=== PATIENT | male | born 1955 | race Caucasian/White ===

== ENCOUNTER 2025-06-15 14:29 | Observation (INO) ==
[2025-06-15 15:02] LABS: Hematocrit (blood only) 30.8 % (42.0-52.0); Hemoglobin 10.3 g/dl (14.0-18.0); Immature Granulocytes # (auto) 0.01 K/uL (0.01-0.20); Immature Granulocytes % (auto) 0.2 %; Mean Corpuscular Hemoglobin 31.4 pg (25.0-34.0); Mean Corpuscular Volume 93.9 fL (80.0-100.0); Platelet Count 191 K/uL (130-400); RDW Standard Deviation 57.3 fL (36.4-46.3); Red Blood Count 3.28 M/uL (4.70-6.10); White Blood Count 4.19 K/ul (4.8-10.8)
[2025-06-15 15:17] LABS: Alanine Aminotransferase 18.0 U/L (7-52); Albumin Globulin Ratio 1.6 (0.9-2); Albumin Level 4.2 gm/dl (3.4-5.0); Alkaline Phosphatase 81.0 U/L (34-104); Anion Gap 15.0 (3-11); Bilirubin,Total 0.5 mg/dl (0.2-1.0); Blood Urea Nitrogen 19.0 mg/dl (6-23); Calcium 9.2 mg/dl (8.6-10.3); Carbon Dioxide 19.0 mmol/L (21-32); Chloride 105.0 mmol/L (98-107); Creatinine Clr Calc Pharmacy 94.6 ml/min; Globulin 2.6 gm/dl (2.5-4.0); Glucose 138.0 mg/dl (70-99(Fasting)); Magnesium 1.4 mg/dl (1.7-2.4); Potassium 4.3 mmol/L (3.5-5.1); Sodium 139.0 mmol/L (136-145); Total Protein 6.8 gm/dl (6.0-8.3)
[2025-06-15 15:27] LABS: INR 1.0 (0.9-1.1); Partial Thromboplastin Time 28 Seconds (21-31); Prothrombin Time 10.7 Seconds (9.0-12.0)
--- NOTE | 2025-06-15 15:31 | Emergency Department Note ---
Impression & Plan Stroke-like symptoms, Expressive aphasia, Anemia, Hypomagnesemia ED Provider Note NAME: JEAN-CLAUDE MCKEON AGE: 70 SEX: M : 1955 ARRIVES VIA: Walk-In INFORMANT: [Patient][family] ED PROVIDER(S): [Mike Herr MD] Patient first seen by me at 1456, once a bed was found by triage. CHIEF COMPLAINT: TIA symptoms HISTORY OF PRESENT ILLNESS: The patient is a 70-year-old male who presents to the ER with difficulty with his speech and finding his words that began at 2 PM, about an hour ago. The patient states that the symptoms lasted for about 40 minutes and seemed to resolve in the ED waiting room. There was no headache, no arm or leg weakness or balance issues, no chest pain or shortness of breath. 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 He is on aspirin and Plavix. As per his family, his speech and his way of talking is back to his typical baseline PMHx/PSHx/Social Hx: See Below PHYSICAL EXAM: GENERAL: Patient is in no acute distress. HEENT: No acute trauma, normocephalic atraumatic, mucous membranes moist, no nasal congestion. NECK: No stridor, no adenopathy, no meningismus, trachea is midline. LUNGS: Clear to auscultation bilaterally, no wheeze, no rhonchi, breath sounds equal. HEART: Without murmurs gallops or rubs, regular rate and rhythm. ABDOMEN: Soft, nontender, no peritonitis. EXTREMITIES: No cyanosis, full range of motion of all the joints without pain or difficulty. NEUROLOGIC: Oriented x 3. There is no speech slur or extremity drift, no cerebellar dysfunction. There may be a subtle right facial droop although, the family believes this is baseline. SKIN: No jaundice, no diaphoresis. DIFFERENTIAL DIAGNOSIS: TIA, CVA, intracranial bleeding, electrolyte imbalance, infection, among others. EMERGENCY DEPARTMENT PROCEDURES: MEDICAL DECISION MAKING: There is no leukocytosis. The patient is anemic with a hemoglobin of 10.3. We have no old or values to use for comparison. There is a normal platelet count. No coagulopathy. No renal failure. Magnesium is low at 1.4. No concerning liver enzyme elevation. The patient appeared to be in a euthyroid state. ECG showed a sinus rhythm, no ischemia or dysrhythmia. Cardiac enzyme testing x 1 was not consistent with acute cardiac injury. Brain CT showed no acute bleed or mass effect. CT angio of the head and neck were performed. There was some narrowing of the right carotid artery, no clot seen. No clot or stenosis of the intracranial arteries. On exam, the patient may have a very slight right facial droop although, his family felt this was baseline. He felt that the expressive aphasia had resolved prior to my assessment. Stroke scale by nursing staff was recorded at 0. I did talk with the [facility] stroke neurologist. The patient was assessed by [facility] stroke neurology via the telemedicine cart. The patient is not a TNK candidate as, his symptoms have resolved. Admission to the hospital for further stroke workup was felt indicated. I spoke with the patient and family. I did speak with case management and the on-call hospitalist. During the patient's ED stay, he received IV saline, IV magnesium. The issues with his speech have not recurred. Prior/Outside records/notes reviewed: None ECG per my interpretation: Indication was stroke symptoms. The ECG shows a sinus rhythm with a PAC. The rate is 92. There is some nonspecific ST change and baseline artifact. There is no ST elevation, no PVCs. The QTc is 420. Continuous Cardiac Monitoring per my interpretation: An order was placed for continuous cardiac monitoring. The monitor shows a rate of 98 with normal sinus rhythm. Imaging/x-ray results per my interpretation: Chronic Medical/Social conditions affecting care: Advanced age, history of previous central retinal artery occlusion. Care/Management discussed with: Case management, the on-call hospitalist. [facility] telestroke-Dr. Sheldon Level of care consideration(s): After review of the information above and other included data: --I believe the patient requires escalation of care to admission Critical Care Note: I have personally spent 41 minutes of critical care time in the direct management of this patient. This includes bedside care, interpretation of diagnostic studies, and testing, discussion with consultants, patient, and family members, and other required patient management activities. This 41 minutes is in excess of all separately billable procedures. DISPOSITION: Admission Past Med/Surg History Problem List (Updated 06/15/25 @ 20:32 by Mike Herr MD) Hypomagnesemia (Acute) Anemia (Acute) Expressive aphasia (Acute) Stroke-like symptoms (Acute) Medical History CRAO (central retinal artery occlusion) Social History Current Living Situation: Family Allergies Allergies Allergy/AdvReac Type Severity Reaction Status Date / Time No Known Allergies Allergy Unverified 06/15/25 16:48 Home Meds Home Medications Medication Instructions Recorded Confirmed aspirin 81 mg tablet,delayed 81 mg PO PM 06/15/25 06/15/25 release atorvastatin 0 mg PO PM 06/15/25 06/15/25 clopidogrel 75 mg tablet 75 mg PO PM 06/15/25 06/15/25 cyanocobalamin (vitamin B-12) 0 mg PO QAM 06/15/25 06/15/25 empagliflozin 10 mg tablet 0 mg PO QAM 06/15/25 06/15/25 (Jardiance) iron 0 mg PO BID 06/15/25 06/15/25 lisinopril 10 mg tablet 0 mg PO QAM 06/15/25 06/15/25 metformin 1,000 mg tablet 1,000 mg PO BID 06/15/25 06/15/25 pantoprazole 40 mg tablet,delayed 40 mg PO QAM 06/15/25 06/15/25 release (Protonix) trazodone 100 mg tablet 100 mg PO HS 06/15/25 06/15/25 Results & Data (ED) Vital Signs Vital Signs - 24 hr 06/15/25 14:34 06/15/25 15:30 06/15/25 15:55 Temperature 36.1 C L Temperature Source Temporal Artery Scan Pulse Rate 98 H 87 Pulse Rate [Apical] 76 Pulse Rhythm [Apical] Pulse Strength [Apical] Respiratory Rate 17 18 Respiratory Effort / Characteristics Non-Labored Spontaneous Respiratory Depth Normal Respiratory Pattern Regular Blood Pressure 130/71 Blood Pressure [Right Arm] 144/81 H Blood Pressure Mean 90 Blood Pressure Mean [Right Arm] 102 Blood Pressure Position [Right Arm] Pulse Oximetry 94 91 Oxygen Delivery Method Room Air Room Air Sepsis Recent Fever Within 48 Hours No Sepsis New/Unexplained Change in Mental Status N/A Sepsis Action Taken by Nursing No Action Required 06/15/25 16:10 06/15/25 16:25 06/15/25 16:30 Temperature Temperature Source Pulse Rate Pulse Rate [Apical] 89 90 83 Pulse Rhythm [Apical] Regular Pulse Strength [Apical] Normal Respiratory Rate 18 20 18 Respiratory Effort / Characteristics Non-Labored Spontaneous Respiratory Depth Normal Respiratory Pattern Regular Blood Pressure Blood Pressure [Right Arm] 144/81 H 144/81 H 144/81 H Blood Pressure Mean Blood Pressure Mean [Right Arm] 102 102 102 Blood Pressure Position [Right Arm] Sitting Pulse Oximetry 96 95 Oxygen Delivery Method Room Air Sepsis Recent Fever Within 48 Hours Sepsis New/Unexplained Change in Mental Status Sepsis Action Taken by Nursing 06/15/25 17:42 06/15/25 18:00 06/15/25 19:52 Temperature Temperature Source Pulse Rate 87 Pulse Rate [Apical] 78 88 Pulse Rhythm [Apical] Pulse Strength [Apical] Respiratory Rate 16 17 Respiratory Effort / Characteristics Non-Labored Spontaneous Respiratory Depth Normal Respiratory Pattern Regular Blood Pressure Blood Pressure [Right Arm] 108/75 119/74 Blood Pressure Mean Blood Pressure Mean [Right Arm] 86 89 Blood Pressure Position [Right Arm] Semi-fowlers Pulse Oximetry 97 96 Oxygen Delivery Method Room Air Room Air Sepsis Recent Fever Within 48 Hours Sepsis New/Unexplained Change in Mental Status Sepsis Action Taken by Nursing 06/15/25 20:00 Temperature Temperature Source Pulse Rate Pulse Rate [Apical] 82 Pulse Rhythm [Apical] Pulse Strength [Apical] Respiratory Rate 18 Respiratory Effort / Characteristics Respiratory Depth Respiratory Pattern Blood Pressure Blood Pressure [Right Arm] 108/69 Blood Pressure Mean Blood Pressure Mean [Right Arm] 82 Blood Pressure Position [Right Arm] Pulse Oximetry 95 Oxygen Delivery Method Sepsis Recent Fever Within 48 Hours Sepsis New/Unexplained Change in Mental Status Sepsis Action Taken by [facility] Medications Current Medication List: was personally reviewed by me Laboratory Data Attestation: I reviewed the patient's lab results. 06/15/25 14:47 06/15/25 14:47 Lab Results 06/15/25 Range/Units 14:47 WBC 4.19 L (4.8-10.8) K/ul RBC 3.28 L (4.70-6.10) M/uL Hgb 10.3 L (14.0-18.0) g/dl Hct 30.8 L (42.0-52.0) % MCV 93.9 (80.0-100.0) fL MCH 31.4 (25.0-34.0) pg MCHC 33.4 (32.0-36.0) g/dL RDW Std Deviation 57.3 H (36.4-46.3) fL RDW Coeff of [place]ida 16.7 H (11.5-14.5) % Plt Count 191 (130-400) K/uL MPV 10.2 (9.4-12.4) fL Immature Gran % (Auto) 0.2 % Neut % (Auto) 48.3 % Lymph % (Auto) 34.8 % [place] % (Auto) 11.9 % Eos % (Auto) 4.3 % Baso % (Auto) 0.5 % Neut # (Auto) 2.02 (1.40-6.50) K/uL Lymph # (Auto) 1.46 (1.20-3.40) K/uL [place] # (Auto) 0.50 (0.11-0.59) K/uL Eos # (Auto) 0.18 (0.00-0.50) K/uL Baso # (Auto) 0.02 (0.00-0.20) K/uL Immature Gran # (Auto) 0.01 (0.01-0.20) K/uL PT 10.7 (9.0-12.0) Seconds INR 1.0 (0.9-1.1) APTT 28 (21-31) Seconds PTT Ratio 1.0 Sodium 139 (136-145) mmol/L Potassium 4.3 (3.5-5.1) mmol/L Chloride 105 (98-107) mmol/L Carbon Dioxide 19 L (21-32) mmol/L Anion Gap 15 H (3-11) BUN 19 (6-23) mg/dl Creatinine 0.94 (0.6-1.4) mg/dl Est Cr Clr Drug Dosing 94.6 ml/min eGFR 86.13 BUN/Creatinine Ratio 20.2 H (10-20) Glucose 138 H (70-99(Fasting)) mg/dl Calcium 9.2 (8.6-10.3) mg/dl Magnesium 1.4 L (1.7-2.4) mg/dl Total Bilirubin 0.5 (0.2-1.0) mg/dl AST 24 (13-39) U/L ALT 18 (7-52) U/L Alkaline Phosphatase 81 (34-104) U/L Troponin I High Sens 4.1 (0-20) pg/ml Total Protein 6.8 (6.0-8.3) gm/dl Albumin 4.2 (3.4-5.0) gm/dl Globulin 2.6 (2.5-4.0) gm/dl Albumin/Globulin Ratio 1.6 (0.9-2) TSH 2.057 (0.300-4.500) uIu/ml Administered Medications Discontinued Medications Magnesium Sulfate/Dextrose (Magnesium Sulfate / D5w) 1 gm in 100 mls @ 100 mls/hr IV Q1H NONI Stop: 06/15/25 17:22 Last Infusion: 06/15/25 19:29 Dose: Infused Documented By: Infusion: 06/15/25 18:35 Dose: 100 mls/hr Documented By: Infusion: 06/15/25 18:03 Dose: 0 mls/hr Documented By: Admin: 06/15/25 17:23 Dose: 100 mls/hr Documented By: Infusion: 06/15/25 17:07 Dose: Infused Documented By: Admin: 06/15/25 16:07 Dose: 100 mls/hr Documented By: NAZANIN Sodium Chloride (Nss) 500 mls @ 999 mls/hr IV .Q31M ONE Stop: 06/15/25 15:53 Last Infusion: 06/15/25 16:58 Dose: Infused Documented By: Admin: 06/15/25 16:07 Dose: 999 mls/hr Documented By: NAZANIN Ioversol (Optiray 320 125ml) 115 ml IV ONCE ONE Stop: 06/15/25 15:48 Last Admin: 06/15/25 15:47 Dose: 115 ml Documented By: ANAYA Imaging Data Radiologist's Impression: Head CT 06/15/25 14:40 EXAM: CT Head Without Intravenous Contrast INDICATION: Dysarthria. TECHNIQUE: Axial computed tomography images of the head/brain without intravenous contrast. Sagittal and/or coronal reformats are provided. Sagittal and coronal reformatted images were created and reviewed. This CT exam was performed using one or more of the following dose reduction techniques: automated exposure control, adjustment of the mA and/or kV according to patient size, and/or use of iterative reconstruction technique. COMPARISON: No relevant prior studies available. FINDINGS: Limitations: None. Brain and extra-axial spaces: There is age appropriate cortical atrophy and chronic ischemic periventricular white matter hypodensity. No acute infarct, hemorrhage or mass noted. Bones/joints: No acute changes. Soft tissues: No significant abnormality noted. Vasculature: No acute abnormality noted. Sinuses: No layering fluid in the visualized portions of the paranasal sinuses. Mastoid air cells: No mastoid effusion. Orbits: No significant abnormality noted. IMPRESSION: Cerebral atrophy. No acute changes. ACT 112: N/A Electronically signed by Marie Zhu 06-15-2025 4:31 PM Head CTA 06/15/25 14:40 EXAM: CT Angiography Head and Neck With Intravenous Contrast INDICATION: Dysarthria TECHNIQUE: [place]/head and neck CT angiography protocol performed with intravenous contrast. Sagittal and coronal reformatted images were created and reviewed. This CT exam was performed using one or more of the following dose reduction techniques: automated exposure control, adjustment of the mA and/or kV according to patient size, and/or use of iterative reconstruction technique. MIP reconstructed images were created and reviewed. CONTRAST: 115 ml of Optiray 320 was administered intravenously. COMPARISON: None. FINDINGS: HEAD: Right anterior cerebral artery: No abnormality noted. No occlusion or significant stenosis. Anterior communicating artery is present. No aneurysm. Right middle cerebral artery: No abnormality noted. No occlusion or significant stenosis. No aneurysm. Right posterior cerebral artery: No abnormality noted. No occlusion or significant stenosis. No aneurysm. Right intracranial internal carotid artery: No abnormality noted. No significant stenosis. No dissection or occlusion. Right intracranial vertebral artery: No abnormality noted. No significant stenosis. No dissection or occlusion. Left anterior cerebral artery: No abnormality noted. No occlusion or significant stenosis. No aneurysm. Left middle cerebral artery: No abnormality noted. No occlusion or significant stenosis. No aneurysm. Left posterior cerebral artery: No abnormality noted. No occlusion or significant stenosis. No aneurysm. Left intracranial internal carotid artery: No abnormality noted. No significant stenosis. No dissection or occlusion. Left intracranial vertebral artery: No abnormality noted. No significant stenosis. No dissection or occlusion. Basilar artery: No abnormality noted. No occlusion or significant stenosis. No aneurysm. Other vasculature: Patent dural venous sinuses. NECK: Right common carotid artery: No abnormality noted. No significant stenosis. No dissection or occlusion. Right extracranial internal carotid artery: Greater than 90% occlusion of the cervical right internal carotid artery with moderate amounts of mixed plaque for a length of up to 1.8 cm. Right external carotid artery: No abnormality noted. No occlusion. Right extracranial vertebral artery: No abnormality noted. No significant stenosis. No dissection or occlusion. Left common carotid artery: No abnormality noted. No significant stenosis. No dissection or occlusion. Left extracranial internal carotid artery: Minimal plaque at the bulb. No significant stenosis. No dissection or occlusion. Left external carotid artery: No abnormality noted. No occlusion. Left extracranial vertebral artery: No abnormality noted. No significant stenosis. No dissection or occlusion. Lung apices: No significant abnormality noted. HEAD and NECK: Bones/joints: No significant abnormality. Soft tissues: No abnormality noted. CAROTID STENOSIS REFERENCE USING NASCET CRITERIA: % ICA stenosis = (1 - narrowest ICA diameter/diameter of distal cervical ICA) x 100. Mild - <50% stenosis. Moderate - 50-69% stenosis. Severe - 70-94% stenosis. Near occlusion - 95-99% stenosis. Occluded - 100% stenosis. IMPRESSION: Greater than 90% stenosis of the right proximal cervical internal carotid artery without total occlusion. Arteries of the head and neck otherwise patent. ACT 112: N/A Electronically signed by Marie Zhu 06-15-2025 4:31 PM Neck CTA 06/15/25 14:40 EXAM: CT Angiography Head and Neck With Intravenous Contrast INDICATION: Dysarthria TECHNIQUE: [place]/head and neck CT angiography protocol performed with intravenous contrast. Sagittal and coronal reformatted images were created and reviewed. This CT exam was performed using one or more of the following dose reduction techniques: automated exposure control, adjustment of the mA and/or kV according to patient size, and/or use of iterative reconstruction technique. MIP reconstructed images were created and reviewed. CONTRAST: 115 ml of Optiray 320 was administered intravenously. COMPARISON: None. FINDINGS: HEAD: Right anterior cerebral artery: No abnormality noted. No occlusion or significant stenosis. Anterior communicating artery is present. No aneurysm. Right middle cerebral artery: No abnormality noted. No occlusion or significant stenosis. No aneurysm. Right posterior cerebral artery: No abnormality noted. No occlusion or significant stenosis. No aneurysm. Right intracranial internal carotid artery: No abnormality noted. No significant stenosis. No dissection or occlusion. Right intracranial vertebral artery: No abnormality noted. No significant stenosis. No dissection or occlusion. Left anterior cerebral artery: No abnormality noted. No occlusion or significant stenosis. No aneurysm. Left middle cerebral artery: No abnormality noted. No occlusion or significant stenosis. No aneurysm. Left posterior cerebral artery: No abnormality noted. No occlusion or significant stenosis. No aneurysm. Left intracranial internal carotid artery: No abnormality noted. No significant stenosis. No dissection or occlusion. Left intracranial vertebral artery: No abnormality noted. No significant stenosis. No dissection or occlusion. Basilar artery: No abnormality noted. No occlusion or significant stenosis. No aneurysm. Other vasculature: Patent dural venous sinuses. NECK: Right common carotid artery: No abnormality noted. No significant stenosis. No dissection or occlusion. Right extracranial internal carotid artery: Greater than 90% occlusion of the cervical right internal carotid artery with moderate amounts of mixed plaque for a length of up to 1.8 cm. Right external carotid artery: No abnormality noted. No occlusion. Right extracranial vertebral artery: No abnormality noted. No significant stenosis. No dissection or occlusion. Left common carotid artery: No abnormality noted. No significant stenosis. No dissection or occlusion. Left extracranial internal carotid artery: Minimal plaque at the bulb. No significant stenosis. No dissection or occlusion. Left external carotid artery: No abnormality noted. No occlusion. Left extracranial vertebral artery: No abnormality noted. No significant stenosis. No dissection or occlusion. Lung apices: No significant abnormality noted. HEAD and NECK: Bones/joints: No significant abnormality. Soft tissues: No abnormality noted. CAROTID STENOSIS REFERENCE USING NASCET CRITERIA: % ICA stenosis = (1 - narrowest ICA diameter/diameter of distal cervical ICA) x 100. Mild - <50% stenosis. Moderate - 50-69% stenosis. Severe - 70-94% stenosis. Near occlusion - 95-99% stenosis. Occluded - 100% stenosis. IMPRESSION: Greater than 90% stenosis of the right proximal cervical internal carotid artery without total occlusion. Arteries of the head and neck otherwise patent. ACT 112: N/A Electronically signed by Marie Zhu 06-15-2025 4:31 PM Brain MRI 06/15/25 17:40 INDICATION: Aphasia COMPARISON: CAT scan from earlier today. TECHNIQUE: Multisequence axial, sagittal and coronal MR images of the brain were obtained. FINDINGS: There is no mass, midline shift, extra-axial fluid collection or hemorrhage. On the diffusion-weighted images there is a small linear area of increased signal in the right frontal lobe near the vertex series 3 image 18. There is corresponding dark signal on the ADC map. There aresmall scattered nonspecific white matter hyperintensities seen on the T2 and FLAIR images. The ventricles are normal size. Unremarkable orbits. IMPRESSION: Suspect small subcortical acute infarct in the right frontal lobe near the vertex. Minor chronic small vessel ischemic changes. Electronically signed by Sena Medina 06-15-2025 7:19 PM Discharge Plan Visit Data Chief Complaint: TIA Symptoms Stated Complaint: NUMBNESS IN FACE, DIZZINESS ED Provider: Mike Herr Discharge Problem: Stroke-like symptoms, Expressive aphasia, Anemia, Hypomagnesemia Patient Disposition: Admitted As Inpatient Condition: Fair Forms Stand Alone Forms: My [facility] [employer] Prescriptions Prescriptions: No Action clopidogrel 75 mg Tablet 75 mg PO PM aspirin [Aspir-81] 81 mg Tablet,Delayed Release (Dr/Ec) 81 mg PO PM trazodone 100 mg Tablet 100 mg PO HS pantoprazole [Protonix] 40 mg Tablet,Delayed Release (Dr/Ec) 40 mg PO QAM Patient Comments: per pt, he isnt sure of his dose metformin 1,000 mg Tablet 1,000 mg PO BID lisinopril 10 mg Tablet 0 mg PO QAM Patient Comments: per pt, he isnt sure of his dose Jardiance 10 mg Tablet 0 mg PO QAM Patient Comments: per pt, he isnt sure of his dose atorvastatin 0 mg PO PM Patient Comments: per pt, he isnt sure of his dose cyanocobalamin (vitamin B-12) 0 mg PO QAM Patient Comments: per pt, he isnt sure of his dose iron 0 mg PO BID Patient Comments: per pt, he isnt sure of his dose Referrals Referrals: PCP,NO [Physician] - Discharge Problem: Anemia Qualifiers: Anemia type: unspecified type Qualified Code(s): D64.9 - Anemia, unspecified
[2025-06-15] MEDS: OPTIRAY 320 125ml IV ONE (15:47)
[2025-06-15] MEDS: SODIUM CHLORIDE 0.9% 500 ML IV ONE (16:07)
[2025-06-15] MEDS: MAGNESIUM SULFATE / D5W 1 GM/100 ML BAG IV SCH ×2 (16:07→23:49)
--- NOTE | 2025-06-15 16:37 | CT Scan Report ---
EXAM: CT Head Without Intravenous Contrast INDICATION: Dysarthria. TECHNIQUE: Axial computed tomography images of the head/brain without intravenous contrast. Sagittal and/or coronal reformats are provided. Sagittal and coronal reformatted images were created and reviewed. This CT exam was performed using one or more of the following dose reduction techniques: automated exposure control, adjustment of the mA and/or kV according to patient size, and/or use of iterative reconstruction technique. COMPARISON: No relevant prior studies available. FINDINGS: Limitations: None. Brain and extra-axial spaces: There is age appropriate cortical atrophy and chronic ischemic periventricular white matter hypodensity. No acute infarct, hemorrhage or mass noted. Bones/joints: No acute changes. Soft tissues: No significant abnormality noted. Vasculature: No acute abnormality noted. Sinuses: No layering fluid in the visualized portions of the paranasal sinuses. Mastoid air cells: No mastoid effusion. Orbits: No significant abnormality noted. IMPRESSION: Cerebral atrophy. No acute changes. ACT 112: N/A Electronically signed by Marie Zhu 06-15-2025 4:31 PM
--- NOTE | 2025-06-15 16:37 | CT Scan Report ---
EXAM: CT Angiography Head and Neck With Intravenous Contrast INDICATION: Dysarthria TECHNIQUE: [place] [facility] [place]/head and neck CT angiography protocol performed with intravenous contrast. Sagittal and coronal reformatted images were created and reviewed. This CT exam was performed using one or more of the following dose reduction techniques: automated exposure control, adjustment of the mA and/or kV according to patient size, and/or use of iterative reconstruction technique. MIP reconstructed images were created and reviewed. CONTRAST: 115 ml of Optiray 320 was administered intravenously. COMPARISON: None. FINDINGS: HEAD: Right anterior cerebral artery: No abnormality noted. No occlusion or significant stenosis. Anterior communicating artery is present. No aneurysm. Right middle cerebral artery: No abnormality noted. No occlusion or significant stenosis. No aneurysm. Right posterior cerebral artery: No abnormality noted. No occlusion or significant stenosis. No aneurysm. Right intracranial internal carotid artery: No abnormality noted. No significant stenosis. No dissection or occlusion. Right intracranial vertebral artery: No abnormality noted. No significant stenosis. No dissection or occlusion. Left anterior cerebral artery: No abnormality noted. No occlusion or significant stenosis. No aneurysm. Left middle cerebral artery: No abnormality noted. No occlusion or significant stenosis. No aneurysm. Left posterior cerebral artery: No abnormality noted. No occlusion or significant stenosis. No aneurysm. Left intracranial internal carotid artery: No abnormality noted. No significant stenosis. No dissection or occlusion. Left intracranial vertebral artery: No abnormality noted. No significant stenosis. No dissection or occlusion. Basilar artery: No abnormality noted. No occlusion or significant stenosis. No aneurysm. Other vasculature: Patent dural venous sinuses. NECK: Right common carotid artery: No abnormality noted. No significant stenosis. No dissection or occlusion. Right extracranial internal carotid artery: Greater than 90% occlusion of the cervical right internal carotid artery with moderate amounts of mixed plaque for a length of up to 1.8 cm. Right external carotid artery: No abnormality noted. No occlusion. Right extracranial vertebral artery: No abnormality noted. No significant stenosis. No dissection or occlusion. Left common carotid artery: No abnormality noted. No significant stenosis. No dissection or occlusion. Left extracranial internal carotid artery: Minimal plaque at the bulb. No significant stenosis. No dissection or occlusion. Left external carotid artery: No abnormality noted. No occlusion. Left extracranial vertebral artery: No abnormality noted. No significant stenosis. No dissection or occlusion. Lung apices: No significant abnormality noted. HEAD and NECK: Bones/joints: No significant abnormality. Soft tissues: No abnormality noted. CAROTID STENOSIS REFERENCE USING NASCET CRITERIA: % ICA stenosis = (1 - narrowest ICA diameter/diameter of distal cervical ICA) x 100. Mild - <50% stenosis. Moderate - 50-69% stenosis. Severe - 70-94% stenosis. Near occlusion - 95-99% stenosis. Occluded - 100% stenosis. IMPRESSION: Greater than 90% stenosis of the right proximal cervical internal carotid artery without total occlusion. Arteries of the head and neck otherwise patent. ACT 112: N/A Electronically signed by Marie Zhu 06-15-2025 4:31 PM
[2025-06-15 18:21] LABS: Thyroid Stimulating Hormone 2.057 uIu/ml (0.300-4.500)
--- NOTE | 2025-06-15 19:20 | Magnetic Resonance Report ---
INDICATION: Aphasia COMPARISON: CAT scan from earlier today. TECHNIQUE: Multisequence axial, sagittal and coronal MR images of the brain were obtained. FINDINGS: There is no mass, midline shift, extra-axial fluid collection or hemorrhage. On the diffusion-weighted images there is a small linear area of increased signal in the right frontal lobe near the vertex series 3 image 18. There is corresponding dark signal on the ADC map. There aresmall scattered nonspecific white matter hyperintensities seen on the T2 and FLAIR images. The ventricles are normal size. Unremarkable orbits. IMPRESSION: Suspect small subcortical acute infarct in the right frontal lobe near the vertex. Minor chronic small vessel ischemic changes. Electronically signed by Sena Medina 06-15-2025 7:19 PM
--- NOTE | 2025-06-15 21:06 | Electrocardiogram Report ---
Test Reason : Blood Pressure : */* mmHG Vent. Rate : 92 BPM Atrial Rate : 92 BPM P-R Int : 146 ms QRS Dur : 82 ms QT Int : 340 ms P-R-T Axes : 51 14 62 degrees QTcB Int : 420 ms Sinus rhythm with Premature atrial complexes Nonspecific T wave abnormality No previous ECGs available Confirmed by Denny Cervantes ([id number]) on 06/15/2025 9:06:15 PM Referred By: Confirmed By: Denny Cervantes
--- NOTE | 2025-06-15 21:23 | History & Physical Report ---
Date of Service June 15, 2025 Assessment & Plan Admission and Anticipated Discharge Date Admission Date: June 15, 2025 History of Present Illness Chief Complaint: "I was talking to some friends at the [employer] this afternoon (06/15/2025, 2:00pm) and all of a sudden, I couldn't say the words that I wanted to say. I felt embarrassed because this never happened to me before. It lasted about 45 minutes, and as I came to [facility] ER by ambulance, I could talk again. By the time I was in the ER, I was back to being myself." Primary Care Provider: Rod Jackman 70 years old ambidextrous, but primarily right-handed male with PMH of FULL CODE @ home, overweight with BMI 28.2 (height 193.0 cm; weight 105.1 kg), cervicalgia due to "pinched nerve @ C3-C4", s/p C3-C4 laminectomy via anterior approach (11/01/2016, [facility], [place], [place]), insomnia disorder on trazodone 100mg PO qhs, GERD on pantoprazole 40mg PO qam, HTN on lisinopril 10mg PO daily, non-insulin dependent DM2 with last recorded HbA1c 6.5% (as per patient's report), on metformin 1000mg PO bid and empagliflozin 10mg PO daily, diabetic toe ulcers/osteomyelitis, all resolved s/p left 2nd toe amputation (2018, [place], [place]), followed by right 1st, 2nd, and 3rd DIP amputations (2021, [place], [place]), after patient's dog licked the patient's right 1st, 2nd, and 3rd toes and transmitted Pasteurella multocida/canis, 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, and CVD, s/p painless right CRAO (central retinal artery occlusion, diagnosed on 08/23/2016, and self-attributed to patient's obstructive sleep apnea, not utilizing CPAP at the time (but now on nocturnal CPAP @ 5 cm H2O), leading to hypoxia, as per patient's report, as patient was visiting his mother in [place], [place], and on waking up in his mother's home to go to the bathroom, patient discovered that he no longer could see out of his right eye, prompting a 1 night observational stay @ [place], [place]), 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 with "my balance being off ever since then, to the point, that I fell last month (April 2025) for the first time ever, while walking my dog 2.6 miles, normally I don't walk 2.6 miles in a day, maybe one or two thousand feet a day with my dog, but anyway, I did a face plant and hit my right forehead in broad daylight, but there was no bleeding on my forehead, just an abrasion and no blackout," now on ASA 81mg PO daily, plavix 75mg PO daily and atorvastatin 20mg PO qpm, who reports: "I was talking to my two sisters at the [employer] having brunch with some other friends this afternoon (06/15/2025, 2:00pm) talking about the football game with [facility] and [place] and how they blew it at their own home stadium, and I flew in from [place], [place], just to see them play and paid $320 a ticket, 2 tickets, up in row [address], and I was gonna fly back home on Monday (06/17/2025), when all of a sudden, I couldn't say the words that I wanted to say. I felt so embarrassed because this never happened to me before. This problem getting the words out lasted about 45 minutes, and as I came to [facility] ER in a car driven by my sisters, I could talk again. By the time I was in the ER, I was back to being myself." Patient denies antecedent/coincident fevers, chills, diaphoresis, cough, wheeze, sore throat, hemoptysis, shortness of breath, dyspnea on exertion, chest pains, palpitations, pleurisy, nausea, vomiting, diarrhea, abdominal pain, pelvic pain, hematemesis, hematochezia, melena, hematuria, dysuria, frequency, urgency, headaches, dizziness, lightheadedness, visual changes, hearing changes, receptive aphasia, weakness, falls, syncope, trauma, travel history, sick conta cts, or food/drug ingestions novel or new. All other review of systems are reported as negative by the patient on admission date 06/15/2025. In [facility] ER bed #C5, patient was afebrile @ 36.1 degrees Celsius, HR 98, RR 17, O2 sat 94% on room air, and BP 130/71 (06/15/2025, 2:34pm). Exam was noted for the absence of facial droop, pronator drift, or dysarthria. Complete blindness in right eye (unchanged since 08/23/2016 painless right CRAO). NIH stroke scale 0. Labs in [facility] ER bed #C5 included: WBC 4.19, N48 L35 M12 E4 B1, Hb 10.3, MCV 93.9, MCHC 33.4, platelet 191 (06/15/2025, 2:47pm). INR 1.0 (06/15/2025, 2:47pm). Na 139, K 4.3, glucose 138, anion gap 15, CO2 19, BUN 19, creatinine 0.94, Ca 9.2, Mg 1.4, AST 24, ALT 18, ALK PHOS 81, total bili 0.5 (06/15/2025, 2:47pm). HbA1c (06/15/2025, 2:47pm). Troponin-I 4.1 pg/mL (06/15/2025, 2:47pm). TSH 2.057 uIU/mL (06/15/2025, 2:47pm). U/A (06/15/2025, 9:41pm). Additional testing in [facility] ER bed #C5 included: CT brain without IV contrast (06/15/2025, 2:40pm): 1. Cerebral atrophy. 2. No acute bleed, mass, or midline shift. CTA head/neck (06/15/2025, 2:40pm): 1. Greater than 90% stenosis of the right proximal cervical internal carotid artery without total occlusion. 2. Arteries of the head and neck otherwise patent. EKG (06/15/2025, 2:42pm): NSR @ 92, TN 146, QTC 420, no acute ST depressions/elevations, TWI, or q waves (by my review). MRI brain without IV contrast (06/15/2025, 5:40pm): 1. Suspect small subcortical acute infarct in the right frontal lobe near the vertex. 2. Minor chronic small vessel ischemic changes. Patient was subsequently admitted to the inpatient hospitalist service @ [facility] on 06/15/2025 with the following diagnoses: 1. Acute non-hemorrhagic, ischemic right frontal CVA, R/O thrombo-embolism from right proximal ICA with greater than 90% stenosis therein (as noted on 06/15/2025, 2:40pm CTA head/neck), R/O intra-cardiac thrombo-embolism. 2. Acute hypomagnesemia with admission Mg 1.4 g/dL (06/15/2025, 2:47pm). 3. Acute elevated anion gap 19, metabolic acidosis with CO2 19 mmol/L, and serum glucose 138 mg/dL (06/15/2025, 2:47pm), R/O lactic acidosis from home- scheduled metformin 1000mg PO bid. 4. Normocytic, normochromic anemia with admission Hb 10.3 g/dL, MCV 93.9, MCHC 33.4 (06/15/2025, 2:47pm). To address #1, patient was placed on telemetry, neuro checks q4h x 24 hours, awaiting HbA1c (06/15/2024, 2:47pm), fasting lipid panel (06/16/2025, 4:44am), TTE (06/16/2025, 7:00am), PT/OT/Speech & Swallow Service evaluations (06/16/2025, 7:00am), and Vascular Surgery Service evaluation with Dr. Kael Muhammad (06/15/2025, 5:39pm) regarding left carotid endarterectomy to address right proximal ICA with greater than 90% stenosis. In the interim, patient was continued on his home-scheduled ASA 81mg PO daily and plavix 75mg PO daily. Patient was started on high intensity dose atorvastatin 80mg PO qpm, in lieu of his home-scheduled low intensity dose atorvastatin 20mg PO qpm. To address #2, patient received magnesium sulfate 1g IV x 2 doses (06/15/2025, 4:07pm, 5:23pm) in [facility] ER bed #C5. Patient will receive magnesium sulfate 1g IV x 2 more doses (06/15/2025, 10:00pm) in [facility] Tele bed #N386-1. I will check repeat Mg level in the 06/16/2025, 4:44am. To address #3, patient awaits lactic acid #1 (06/15/2025, 9:59pm) and repeat anion gap, CO2, and serum glucose levels in the 06/16/2025, 4:44am. In the interim, patient is being held off his home-scheduled metformin 1000mg PO bid for at least the next 72 hours from the time of patient having received IV contrast (06/15/2025, 2:40pm CTA head/neck) in order to mitigate the potential for post-contrast nephropathy should patient continue uninterrupted his home- scheduled metformin 1000mg PO bid while in [facility]. To address #4, patient awaits repeat Hb level testing in the 06/16/2025, 4:44am. I will reserve packed RBC transfusion for Hb level less than 7 g/dL. Allergies Allergy/AdvReac Type Severity Reaction Status Date / Time No Known Allergies Allergy Unverified 06/15/25 16:48 Home Medications Medication Instructions Recorded Confirmed Type aspirin 81 mg tablet,delayed 81 mg PO PM 06/15/25 06/15/25 History release atorvastatin 0 mg PO PM 06/15/25 06/15/25 History clopidogrel 75 mg tablet 75 mg PO PM 06/15/25 06/15/25 History cyanocobalamin (vitamin B-12) 0 mg PO QAM 06/15/25 06/15/25 History empagliflozin 10 mg tablet 0 mg PO QAM 06/15/25 06/15/25 History (Jardiance) iron 0 mg PO BID 06/15/25 06/15/25 History lisinopril 10 mg tablet 0 mg PO QAM 06/15/25 06/15/25 History metformin 1,000 mg tablet 1,000 mg PO BID 06/15/25 06/15/25 History pantoprazole 40 mg tablet,delayed 40 mg PO QAM 06/15/25 06/15/25 History release (Protonix) trazodone 100 mg tablet 100 mg PO HS 06/15/25 06/15/25 History Past Med/Surg History Problem List Hypomagnesemia (Acute) Anemia (Acute) Expressive aphasia (Acute) Stroke-like symptoms (Acute) Medical History CRAO (central retinal artery occlusion) Family History (Updated 06/15/25 @ 22:12 by Leo Leslie MD, PhD) Father , at 49 years of age from first and last acute [place] in the setting of smoking an occasional cigar, not on a daily basis, in the absence of HTN or DM or ETOH. No problems noted. Mother , at 90 years of age from natural causes. No problems noted. Social History (Updated 06/15/25 @ 22:17 by Leo Leslie MD, PhD) Smoking Status: Never smoker Hx Alcohol Use: Yes Hx Substance Use: No Preferred Language: Bulgarian Communication Ability: Effective Communication Ability Comment: [place],[employer]. 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 How many Children do You have: 3 How many Children do You have Comment: 2 sons (42yrs, 40yrs), 1 daughter (36yrs), all alive and well. other: Walks without assistance. Drives car without assistance. 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 Seatbelt Use: always Do you think of yourself as: straight/heterosexual Gender Identity: Male Assistive Devices: None and CPAP Review of Systems Constitutional: Negative for antecedent/coincident fevers, chills, diaphoresis, cough, wheeze, sore throat, hemoptysis, chest pains, palpitations, pleurisy, nausea, vomiting, diarrhea, abdominal pain, pelvic pain, hematemesis, hematochezia, melena, hematuria, dysuria, frequency, urgency, headaches, dizziness, lightheadedness, visual changes, hearing changes, weakness, falls, syncope, trauma, travel history, sick contacts, or food/drug ingestions novel or new. All other review of systems are reported as negative by the patient on 10/22/2024. Results & Data Results & Data Vital Signs (Past 12 Hours) Vital Signs Temp Pulse Pulse Resp BP BP Pulse Ox 06/15/25 20:00 82 18 108/69 95 06/15/25 19:52 87 06/15/25 18:00 88 17 119/74 96 06/15/25 17:42 78 16 108/75 97 06/15/25 16:30 83 18 144/81 H 06/15/25 16:25 90 20 144/81 H 95 06/15/25 16:10 89 18 144/81 H 96 06/15/25 15:55 87 06/15/25 15:30 76 18 144/81 H 91 06/15/25 14:34 36.1 C L 98 H 17 130/71 94 O2 Del Method 06/15/25 20:00 06/15/25 19:52 06/15/25 18:00 Room Air 06/15/25 17:42 Room Air 06/15/25 16:30 06/15/25 16:25 Room Air 06/15/25 16:10 06/15/25 15:55 06/15/25 15:30 Room Air 06/15/25 14:34 Room Air Code Status & VTE Plan VTE Prophylaxis Plan VTE Prophylaxis will be ordered: Yes PG Care Time/CCT Total # of Minutes Spent Total Time Spent with Patient: Total time spent is greater than 50% in coordination of care (as documented) at patient's floor/unit and/or counseling patient: Coding Level of Care Code 94392 INT INP/OBS CARE 3/75MIN
[2025-06-15] MEDS: ATORVASTATIN 40 MG TAB PO SCH (21:53)
[2025-06-15] MEDS: ASPIRIN 81 MG ECTAB PO SCH (21:53)
[2025-06-15 21:54] LABS: Appearance Urine Clear (Clear); Glucose Urine UA 3+ (Negative)
[2025-06-15] MEDS: CLOPIDOGREL BISULFATE 75 MG TAB PO SCH (21:54)
[2025-06-15] MEDS: HEPARIN SOD 5,000 UNIT/0.5 ML VIAL SQ SCH (21:56)
[2025-06-16] MEDS: ACETAMINOPHEN 325 MG TAB PO PRN (00:08)
[2025-06-16 07:42] VITALS: RESP 18
[2025-06-16 08:02] LABS: Hemoglobin A1C 5.9 % (4.5-5.6)
[2025-06-16 09:20] LABS: Hematocrit (blood only) 29.1 % (42.0-52.0); Hemoglobin 9.8 g/dl (14.0-18.0); Immature Granulocytes # (auto) 0.01 K/uL (0.01-0.20); Immature Granulocytes % (auto) 0.4 %; Mean Corpuscular Hemoglobin 31.3 pg (25.0-34.0); Mean Corpuscular Volume 93.0 fL (80.0-100.0); Platelet Count 156 K/uL (130-400); RDW Standard Deviation 57.3 fL (36.4-46.3); Red Blood Count 3.13 M/uL (4.70-6.10); White Blood Count 2.53 K/ul (4.8-10.8)
[2025-06-16 09:47] LABS: Anion Gap 7.0 (3-11); Blood Urea Nitrogen 14.0 mg/dl (6-23); Calcium 8.9 mg/dl (8.6-10.3); Carbon Dioxide 27.0 mmol/L (21-32); Chloride 104.0 mmol/L (98-107); Cholesterol 107.0 mg/dl (0-200); Creatinine Clr Calc Pharmacy 117.1 ml/min; Glucose 110.0 mg/dl (70-99(Fasting)); HDL Cholesterol 38.0 mg/dl; Magnesium 2.0 mg/dl (1.7-2.4); Potassium 4.1 mmol/L (3.5-5.1); Sodium 138.0 mmol/L (136-145); Triglycerides 105.0 mg/dl (0-150)
--- NOTE | 2025-06-16 10:56 | Vascular Surgery Consultation ---
Date of Consultation June 16, 2025 Assessment & Plan (1) Stenosis of right internal carotid artery: imaging reviewed and does appear to be at least 90% stenosis on CTA Discussed risks and benefits of treatment of carotid artery stenosis. Given his degree of blockage and his MRI showing acute infarct, would recommend timing of intervention to be within the next two weeks after giving his brain a couple of days to rest from acute insult. Patient lives outside of [place], [place], and is due to return tomorrow. We discussed staying for procedure vs returning home for procedure. He would need to get seen by vascular surgeon LORENZO if he chooses to return to [place]. We can reach out to surgeons in the area and make recommendations for him, if he wishes. (2) Stroke-like symptoms: expressive aphasia with possible facial drooping, now back to baseline given MRI findings, likely from his JASPREET stenosis Recommend continuing his statin, aspirin and plavix Will need carotid intervention-discussed with patient timing. 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 Leslie Attending Physician: Leo Leslie MD, PhD History of Present Illness Mr. Valenzuela is a 70 year old male who was admitted yesterday with concerns for stroke/TIA, who we are being asked to see for 90% JASPREET stenosis. History was obtained from patient as well as medical record. Mr. Valenzuela has a past medical history significant for diabetes, previous stroke/TIA (retinal artery occlusion right eye) in 2016 with residual right eye blindness, HTN, GERD who was admitted yesterday afternoon after an episode where his mouth felt "numb" and he was having difficulty speaking- "like I had to practice the words so they would come out." At that time his sister also noted that one side of his mouth seemed to droop more, however he is not sure which side was drooping. By the time he got to the ED he was back to normal and was able to speak without difficulty. Time from onset to resolution about 45 minutes. Work up in the ED included CT brain with no acute bleed or mass, CTA of head/neck, which demonstrated a >90% stenosis right proximal internal carotid artery, and MRI brain revealed a small subcortical acute infarct in right frontal lobe. He tells me this morning he feels he is back to his baseline, otherwise, and is just tired. He denies any further issues with speaking, no new vision loss, no weakness in one arm or leg, and no difficulty with the little bit of food he had this morning. He also denies chest pain, shortness of breath. He is predominantly right handed, does use his left hand for some things. He does take aspirin and plavix as well as a statin at home, and has since his last stroke. He has a family history of CAD/PA-dad at 49 from massive heart attack. He has a history of C3-C4 spinal fusion, anterior approach in 2016. No history of radiation to the neck. He does not smoke. Echo read is pending at this time. Allergies Allergy/AdvReac Type Severity Reaction Status Date / Time No Known Allergies Allergy Unverified 06/15/25 16:48 Home Medications Medication Instructions Recorded Confirmed Type aspirin 81 mg tablet,delayed 81 mg PO PM 06/15/25 06/15/25 History release atorvastatin 0 mg PO PM 06/15/25 06/15/25 History clopidogrel 75 mg tablet 75 mg PO PM 06/15/25 06/15/25 History cyanocobalamin (vitamin B-12) 0 mg PO QAM 06/15/25 06/15/25 History empagliflozin 10 mg tablet 0 mg PO QAM 06/15/25 06/15/25 History (Jardiance) iron 0 mg PO BID 06/15/25 06/15/25 History lisinopril 10 mg tablet 0 mg PO QAM 06/15/25 06/15/25 History metformin 1,000 mg tablet 1,000 mg PO BID 06/15/25 06/15/25 History pantoprazole 40 mg tablet,delayed 40 mg PO QAM 06/15/25 06/15/25 History release (Protonix) trazodone 100 mg tablet 100 mg PO HS 06/15/25 06/15/25 History Patient History Medical History (Updated 06/16/25 @ 10:49 by Charo Hong PA-C) CRAO (central retinal artery occlusion) Surgical History S/P cervical spinal fusion Family History Father , at 49 years of age from first and last acute PA in the setting of smoking an occasional cigar, not on a daily basis, in the absence of HTN or DM or ETOH. No problems noted. Mother , at 90 years of age from natural causes. No problems noted. Social History Smoking Status: Never smoker Second Hand Exposure: No; Do You Dip or Chew Tobacco: No; Hx Alcohol Use: Yes Alcohol type: wine and other Hx Substance Use: No Preferred Language: Frisian Communication Ability: Effective Communication Ability Comment: [place],[employer] [employer]. 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 How many Children do You have: 3 How many Children do You have Comment: 2 sons (42yrs, 40yrs), 1 daughter (36yrs), all alive and well. other: Walks without assistance. Drives car without assistance. 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 Seatbelt Use: always Do you think of yourself as: straight/heterosexual Gender Identity: Male Assistive Devices: None and CPAP Review of Systems Constitutional: denies fevers, chills, night sweats Eyes: chronic right eye blindness, no other vision loss or change of vision Ear, Nose, Mouth, Throat: no difficulty swallowing, no sore throat Respiratory: no shortness of breath, no coughing, no wheezing Cardiovascular: Additional Comments: denies chest pain, dyspnea on exertion, palpitations Gastrointestinal: denies nausea, vomiting or diarrhea Musculoskeletal: denies joint pain or joint swelling, no muscle pain or weakness Integumentary: denies rashes or ulceration, denies any itching Neurologic: see HPI Hematologic / Lymphatic: no easy bleeding or bruising Physical Exam Constitutional: pleasant and talkative, well developed, well nourished, in no distress Eyes: EOMI ENMT: tongue midline, mucous membranes moist Neck: trachea midline, soft right carotid bruit Respiratory: CTAB anteriorly, no accessory muscle use or increased respiratory effort Cardiovascular: RRR, no murmurs noted Radial pulses +2 bilaterally Dorsalis Pedis pulses +2 bilaterally Gastrointestinal (Abdomen): non distended, soft, NTTP. No bruits. Bowel sounds active Musculoskeletal: full range of motion in arms and legs strength +5/5 in all extremities and equal bilaterally Skin: no rashes or lesions, warm and dry Neurologic: CN II-XII grossly intact. Results & Data Vital Signs (Past 12 Hours) Vital Signs Temp Pulse Pulse Resp BP Pulse Ox O2 Del Method 06/16/25 07:41 36.4 C L 73 18 132/75 96 Room Air 06/16/25 07:25 69 06/16/25 03:36 64 14 91 06/16/25 03:13 36.3 C L 74 16 120/73 97 Room Air 06/16/25 01:06 80 06/16/25 00:20 81 17 93 FiO2 06/16/25 07:41 06/16/25 07:25 06/16/25 03:36 21 06/16/25 03:13 06/16/25 01:06 06/16/25 00:20 21 Laboratory Results 06/16/25 06/15/25 06/15/25 08:59 22:53 21:41 WBC 2.53 L RBC 3.13 L Hgb 9.8 L Hct 29.1 L MCV 93.0 MCH 31.3 MCHC 33.7 RDW Std Deviation 57.3 H RDW Coeff of Nida 16.8 H Plt Count 156 MPV 10.4 Immature Gran % (Auto) 0.4 Neut % (Auto) 47.1 Lymph % (Auto) 32.4 Travis % (Auto) 14.2 Eos % (Auto) 5.1 Baso % (Auto) 0.8 Neut # (Auto) 1.19 L Lymph # (Auto) 0.82 L Travis # (Auto) 0.36 Eos # (Auto) 0.13 Baso # (Auto) 0.02 Immature Gran # (Auto) 0.01 PT INR APTT PTT Ratio Sodium 138 Potassium 4.1 Chloride 104 Carbon Dioxide 27 Anion Gap 7 BUN 14 Creatinine 0.70 Est Cr Clr Drug Dosing 117.1 eGFR 97.90 BUN/Creatinine Ratio 20.0 Glucose 110 H Estimat Average Glucose Hemoglobin A1c Lactate 1.1 Calcium 8.9 Magnesium 2.0 Total Bilirubin AST ALT Alkaline Phosphatase Troponin I High Sens Total Protein Albumin Globulin Albumin/Globulin Ratio Triglycerides 105 Cholesterol 107 LDL Cholesterol, Calc 48 VLDL Cholesterol, Calc 21 HDL Cholesterol 38 Cholesterol/HDL Ratio 2.8 TSH Urine Color Yellow Urine Appearance Clear Urine pH 5.5 Ur Specific [place] 1.035 H Urine Protein Negative Urine Glucose (UA) 3+ H Urine Ketones 1+ H Urine Blood Negative Urine Nitrite Negative Urine Bilirubin Negative Urine Urobilinogen Negative Ur Leukocyte Esterase Negative Urine Comment 06/15/25 14:47 WBC 4.19 L RBC 3.28 L Hgb 10.3 L Hct 30.8 L MCV 93.9 MCH 31.4 MCHC 33.4 RDW Std Deviation 57.3 H RDW Coeff of Nida 16.7 H Plt Count 191 MPV 10.2 Immature Gran % (Auto) 0.2 Neut % (Auto) 48.3 Lymph % (Auto) 34.8 Travis % (Auto) 11.9 Eos % (Auto) 4.3 Baso % (Auto) 0.5 Neut # (Auto) 2.02 Lymph # (Auto) 1.46 Travis # (Auto) 0.50 Eos # (Auto) 0.18 Baso # (Auto) 0.02 Immature Gran # (Auto) 0.01 PT 10.7 INR 1.0 APTT 28 PTT Ratio 1.0 Sodium 139 Potassium 4.3 Chloride 105 Carbon Dioxide 19 L Anion Gap 15 H BUN 19 Creatinine 0.94 Est Cr Clr Drug Dosing 94.6 eGFR 86.13 BUN/Creatinine Ratio 20.2 H Glucose 138 H Estimat Average Glucose 123 Hemoglobin A1c 5.9 H Lactate Calcium 9.2 Magnesium 1.4 L Total Bilirubin 0.5 AST 24 ALT 18 Alkaline Phosphatase 81 Troponin I High Sens 4.1 Total Protein 6.8 Albumin 4.2 Globulin 2.6 Albumin/Globulin Ratio 1.6 Triglycerides Cholesterol LDL Cholesterol, Calc VLDL Cholesterol, Calc HDL Cholesterol Cholesterol/HDL Ratio TSH 2.057 Urine Color Urine Appearance Urine pH Ur Specific [place] Urine Protein Urine Glucose (UA) Urine Ketones Urine Blood Urine Nitrite Urine Bilirubin Urine Urobilinogen Ur Leukocyte Esterase Urine Comment Diagnostic Findings Head CT 06/15/25 14:40 EXAM: CT Head Without Intravenous Contrast INDICATION: Dysarthria. TECHNIQUE: Axial computed tomography images of the head/brain without intravenous contrast. Sagittal and/or coronal reformats are provided. Sagittal and coronal reformatted images were created and reviewed. This CT exam was performed using one or more of the following dose reduction techniques: automated exposure control, adjustment of the mA and/or kV according to patient size, and/or use of iterative reconstruction technique. COMPARISON: No relevant prior studies available. FINDINGS: Limitations: None. Brain and extra-axial spaces: There is age appropriate cortical atrophy and chronic ischemic periventricular white matter hypodensity. No acute infarct, hemorrhage or mass noted. Bones/joints: No acute changes. Soft tissues: No significant abnormality noted. Vasculature: No acute abnormality noted. Sinuses: No layering fluid in the visualized portions of the paranasal sinuses. Mastoid air cells: No mastoid effusion. Orbits: No significant abnormality noted. IMPRESSION: Cerebral atrophy. No acute changes. ACT 112: N/A Electronically signed by Marie Zhu 06-15-2025 4:31 PM Head CTA 06/15/25 14:40 EXAM: CT Angiography Head and Neck With Intravenous Contrast INDICATION: Dysarthria TECHNIQUE: [place]/head and neck CT angiography protocol performed with intravenous contrast. Sagittal and coronal reformatted images were created and reviewed. This CT exam was performed using one or more of the following dose reduction techniques: automated exposure control, adjustment of the mA and/or kV according to patient size, and/or use of iterative reconstruction technique. MIP reconstructed images were created and reviewed. CONTRAST: 115 ml of Optiray 320 was administered intravenously. COMPARISON: None. FINDINGS: HEAD: Right anterior cerebral artery: No abnormality noted. No occlusion or significant stenosis. Anterior communicating artery is present. No aneurysm. Right middle cerebral artery: No abnormality noted. No occlusion or significant stenosis. No aneurysm. Right posterior cerebral artery: No abnormality noted. No occlusion or significant stenosis. No aneurysm. Right intracranial internal carotid artery: No abnormality noted. No significant stenosis. No dissection or occlusion. Right intracranial vertebral artery: No abnormality noted. No significant stenosis. No dissection or occlusion. Left anterior cerebral artery: No abnormality noted. No occlusion or significant stenosis. No aneurysm. Left middle cerebral artery: No abnormality noted. No occlusion or significant stenosis. No aneurysm. Left posterior cerebral artery: No abnormality noted. No occlusion or significant stenosis. No aneurysm. Left intracranial internal carotid artery: No abnormality noted. No significant stenosis. No dissection or occlusion. Left intracranial vertebral artery: No abnormality noted. No significant stenosis. No dissection or occlusion. Basilar artery: No abnormality noted. No occlusion or significant stenosis. No aneurysm. Other vasculature: Patent dural venous sinuses. NECK: Right common carotid artery: No abnormality noted. No significant stenosis. No dissection or occlusion. Right extracranial internal carotid artery: Greater than 90% occlusion of the cervical right internal carotid artery with moderate amounts of mixed plaque for a length of up to 1.8 cm. Right external carotid artery: No abnormality noted. No occlusion. Right extracranial vertebral artery: No abnormality noted. No significant stenosis. No dissection or occlusion. Left common carotid artery: No abnormality noted. No significant stenosis. No dissection or occlusion. Left extracranial internal carotid artery: Minimal plaque at the bulb. No significant stenosis. No dissection or occlusion. Left external carotid artery: No abnormality noted. No occlusion. Left extracranial vertebral artery: No abnormality noted. No significant stenosis. No dissection or occlusion. Lung apices: No significant abnormality noted. HEAD and NECK: Bones/joints: No significant abnormality. Soft tissues: No abnormality noted. CAROTID STENOSIS REFERENCE USING NASCET CRITERIA: % ICA stenosis = (1 - narrowest ICA diameter/diameter of distal cervical ICA) x 100. Mild - <50% stenosis. Moderate - 50-69% stenosis. Severe - 70-94% stenosis. Near occlusion - 95-99% stenosis. Occluded - 100% stenosis. IMPRESSION: Greater than 90% stenosis of the right proximal cervical internal carotid artery without total occlusion. Arteries of the head and neck otherwise patent. ACT 112: N/A Electronically signed by Marie Zhu 06-15-2025 4:31 PM Neck CTA 06/15/25 14:40 EXAM: CT Angiography Head and Neck With Intravenous Contrast INDICATION: Dysarthria TECHNIQUE: [place]/head and neck CT angiography protocol performed with intravenous contrast. Sagittal and coronal reformatted images were created and reviewed. This CT exam was performed using one or more of the following dose reduction techniques: automated exposure control, adjustment of the mA and/or kV according to patient size, and/or use of iterative reconstruction technique. MIP reconstructed images were created and reviewed. CONTRAST: 115 ml of Optiray 320 was administered intravenously. COMPARISON: None. FINDINGS: HEAD: Right anterior cerebral artery: No abnormality noted. No occlusion or significant stenosis. Anterior communicating artery is present. No aneurysm. Right middle cerebral artery: No abnormality noted. No occlusion or significant stenosis. No aneurysm. Right posterior cerebral artery: No abnormality noted. No occlusion or significant stenosis. No aneurysm. Right intracranial internal carotid artery: No abnormality noted. No significant stenosis. No dissection or occlusion. Right intracranial vertebral artery: No abnormality noted. No significant stenosis. No dissection or occlusion. Left anterior cerebral artery: No abnormality noted. No occlusion or significant stenosis. No aneurysm. Left middle cerebral artery: No abnormality noted. No occlusion or significant stenosis. No aneurysm. Left posterior cerebral artery: No abnormality noted. No occlusion or significant stenosis. No aneurysm. Left intracranial internal carotid artery: No abnormality noted. No significant stenosis. No dissection or occlusion. Left intracranial vertebral artery: No abnormality noted. No significant stenosis. No dissection or occlusion. Basilar artery: No abnormality noted. No occlusion or significant stenosis. No aneurysm. Other vasculature: Patent dural venous sinuses. NECK: Right common carotid artery: No abnormality noted. No significant stenosis. No dissection or occlusion. Right extracranial internal carotid artery: Greater than 90% occlusion of the cervical right internal carotid artery with moderate amounts of mixed plaque for a length of up to 1.8 cm. Right external carotid artery: No abnormality noted. No occlusion. Right extracranial vertebral artery: No abnormality noted. No significant stenosis. No dissection or occlusion. Left common carotid artery: No abnormality noted. No significant stenosis. No dissection or occlusion. Left extracranial internal carotid artery: Minimal plaque at the bulb. No significant stenosis. No dissection or occlusion. Left external carotid artery: No abnormality noted. No occlusion. Left extracranial vertebral artery: No abnormality noted. No significant stenosis. No dissection or occlusion. Lung apices: No significant abnormality noted. HEAD and NECK: Bones/joints: No significant abnormality. Soft tissues: No abnormality noted. CAROTID STENOSIS REFERENCE USING NASCET CRITERIA: % ICA stenosis = (1 - narrowest ICA diameter/diameter of distal cervical ICA) x 100. Mild - <50% stenosis. Moderate - 50-69% stenosis. Severe - 70-94% stenosis. Near occlusion - 95-99% stenosis. Occluded - 100% stenosis. IMPRESSION: Greater than 90% stenosis of the right proximal cervical internal carotid artery without total occlusion. Arteries of the head and neck otherwise patent. ACT 112: N/A Electronically signed by Marie Zhu 06-15-2025 4:31 PM Brain MRI 06/15/25 17:40 INDICATION: Aphasia COMPARISON: CAT scan from earlier today. TECHNIQUE: Multisequence axial, sagittal and coronal MR images of the brain were obtained. FINDINGS: There is no mass, midline shift, extra-axial fluid collection or hemorrhage. On the diffusion-weighted images there is a small linear area of increased signal in the right frontal lobe near the vertex series 3 image 18. There is corresponding dark signal on the ADC map. There aresmall scattered nonspecific white matter hyperintensities seen on the T2 and FLAIR images. The ventricles are normal size. Unremarkable orbits. IMPRESSION: Suspect small subcortical acute infarct in the right frontal lobe near the vertex. Minor chronic small vessel ischemic changes. Electronically signed by Sena Medina 06-15-2025 7:19 PM Medications Administered Home Medications Medication Instructions Recorded Confirmed Last Taken aspirin 81 mg tablet,delayed 81 mg PO PM 06/15/25 06/15/25 Unknown release atorvastatin 0 mg PO PM 06/15/25 06/15/25 Unknown clopidogrel 75 mg tablet 75 mg PO PM 06/15/25 06/15/25 Unknown cyanocobalamin (vitamin B-12) 0 mg PO QAM 06/15/25 06/15/25 Unknown empagliflozin 10 mg tablet 0 mg PO QAM 06/15/25 06/15/25 Unknown (Jardiance) iron 0 mg PO BID 06/15/25 06/15/25 Unknown lisinopril 10 mg tablet 0 mg PO QAM 06/15/25 06/15/25 Unknown metformin 1,000 mg tablet 1,000 mg PO BID 06/15/25 06/15/25 Unknown pantoprazole 40 mg tablet,delayed 40 mg PO QAM 06/15/25 06/15/25 Unknown release (Protonix) trazodone 100 mg tablet 100 mg PO HS 06/15/25 06/15/25 Unknown Active Medications Generic Name Dose Route Start Last Admin Trade Name Freq PRN Reason Stop Dose Admin Acetaminophen 650 mg 06/15/25 17:37 06/16/25 00:08 Acetaminophen 325 Mg Tab PO 07/15/25 17:36 650 mg Q6H PRN Administration pain/fever/headache Aspirin 81 mg 06/15/25 21:00 06/15/25 21:53 Aspirin 81 Mg Ectab PO 07/15/25 20:59 81 mg PM NONI Administration Atorvastatin Calcium 80 mg 06/15/25 21:00 06/15/25 21:53 Atorvastatin 40 Mg Tab PO 07/15/25 20:59 80 mg PM NONI Administration Clopidogrel Bisulfate 75 mg 06/15/25 21:00 06/15/25 21:54 Clopidogrel Bisulfate 75 Mg Tab PO 07/15/25 20:59 75 mg PM NONI Administration Heparin Sodium (Porcine) 5,000 units 06/15/25 22:00 06/16/25 05:42 Heparin Sod 5,000 Unit/0.5 Ml Vial SQ 07/15/25 21:59 5,000 units Q8 NONI Administration Trazodone HCl 100 mg 06/15/25 21:00 06/15/25 21:53 Trazodone Hcl 100 Mg Tab PO 07/15/25 20:59 100 mg HS NONI Administration PG Care Time/CCT Total # of Minutes Spent Total Time Spent with Patient: Total time spent is greater than 50% in coordination of care (as documented) at patient's floor/unit and/or counseling patient: [place] [address] INT INP/OBS CARE 2/55MIN Patient Type New History Detailed Exam Detailed Medical Decision Making Moderate Complexity Diagnoses Stenosis of right internal carotid artery I65.21 Stroke-like symptoms R29.90 History of stroke Z86.73
--- NOTE | 2025-06-16 11:22 | XCELERA ---
[id number]
[2025-06-16 11:32] VITALS: BP 119/71; TEMP 97.9; O2SAT 94
--- NOTE | 2025-06-16 13:57 | Neurology Consultation ---
Date of Consultation June 16, 2025 Assessment & Plan (1) Stroke-like symptoms: History of Present Illness Attending Physician: Leo Leslie MD, PhD History of Present Illness chart reviewed. pt mri brain noted for very small rt deep subcortical small punctate ischemic lesion. pt asymptomatic. ED visit note: The patient is a 70-year-old male who presents to the ER with difficulty with his speech and finding his words that began at 2 PM, about an hour ago. The patient states that the symptoms lasted for about 40 minutes and seemed to resolve in the ED waiting room. There was no headache, no arm or leg weakness or balance issues, no chest pain or shortness of breath. 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 He is on aspirin and Plavix. As per his family, his speech and his way of talking is back to his typical baseline Allergies Allergy/AdvReac Type Severity Reaction Status Date / Time No Known Allergies Allergy Unverified 06/15/25 16:48 Home Medications Medication Instructions Recorded Confirmed Type aspirin 81 mg tablet,delayed 81 mg PO PM 06/15/25 06/15/25 History release atorvastatin 0 mg PO PM 06/15/25 06/15/25 History clopidogrel 75 mg tablet 75 mg PO PM 06/15/25 06/15/25 History cyanocobalamin (vitamin B-12) 0 mg PO QAM 06/15/25 06/15/25 History empagliflozin 10 mg tablet 0 mg PO QAM 06/15/25 06/15/25 History (Jardiance) iron 0 mg PO BID 06/15/25 06/15/25 History lisinopril 10 mg tablet 0 mg PO QAM 06/15/25 06/15/25 History metformin 1,000 mg tablet 1,000 mg PO BID 06/15/25 06/15/25 History pantoprazole 40 mg tablet,delayed 40 mg PO QAM 06/15/25 06/15/25 History release (Protonix) trazodone 100 mg tablet 100 mg PO HS 06/15/25 06/15/25 History Patient History Medical History (Updated 06/16/25 @ 10:49 by Charo Hong PA-C) CRAO (central retinal artery occlusion) Surgical History S/P cervical spinal fusion Family History Father , at 49 years of age from first and last acute LA in the setting of smoking an occasional cigar, not on a daily basis, in the absence of HTN or DM or ETOH. No problems noted. Mother , at 90 years of age from natural causes. No problems noted. Social History Smoking Status: Never smoker Second Hand Exposure: No; Do You Dip or Chew Tobacco: No; Hx Alcohol Use: Yes Alcohol type: wine and other Hx Substance Use: No Preferred Language: Puerto Rican Communication Ability: Effective Communication Ability Comment: [place],Civil [employer]. 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 How many Children do You have: 3 How many Children do You have Comment: 2 sons (42yrs, 40yrs), 1 daughter (36yrs), all alive and well. other: Walks without assistance. Drives car without assistance. 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 Seatbelt Use: always Do you think of yourself as: straight/heterosexual Gender Identity: Male Assistive Devices: CPAP Exam (Neuro) Physical Exam: exam: deferred Impression: 70 yo male with resolved word finding problem in setting of metabolic acidosis, hypomagnesium, incidental finding of small rt deep subcortical ischemic lesion. His word finding problem is likely due to metabolic disorder rather than from the stroke as it does not explain or localizes to the mri brain finding. Recommendations: DAPT for 21 days and monotherapy after that. vascular surgery recommendation noted not much else to offer from neurology as he is asymptomatic and I do not feel his small lesion in mri brain is the cause for his symptom. 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 will sign off. Results & Data Vital Signs (Past 12 Hours) Vital Signs Temp Pulse Pulse Resp BP Pulse Ox O2 Del Method 06/16/25 11:32 36.6 C 86 18 119/71 94 Room Air 06/16/25 07:41 36.4 C L 73 18 132/75 96 Room Air 06/16/25 07:25 69 06/16/25 03:36 64 14 91 06/16/25 03:13 36.3 C L 74 16 120/73 97 Room Air FiO2 06/16/25 11:32 06/16/25 07:41 06/16/25 07:25 06/16/25 03:36 21 06/16/25 03:13 PG Care Time/CCT Total # of Minutes Spent Total Time Spent with Patient: Total time spent is greater than 50% in coordination of care (as documented) at patient's floor/unit and/or counseling patient: Coding Level of Care Code None Diagnoses Stroke-like symptoms R29.90
[2025-06-16 15:15] VITALS: PULSE 84
[2025-06-16 15:24] LABS: Iron 54.0 mcg/dl (35-175)
[2025-06-16 15:59] LABS: Ferritin 15.2 ng/ml (8-388)
[2025-06-16 16:06] LABS: Folate (Folic Acid),Ser orPlas 11.24 ng/ml (>5.38)
[2025-06-16 16:08] LABS: Vitamin B12 > 1500 pg/ml (180-914)
--- NOTE | 2025-06-16 16:49 | Discharge Summary ---
Discharge Summary Date of Service June 16, 2025 Principal Dx & Hospital Course #1 = Principal Diagnosis Admission HPI Per Admitting Provider 70 years old ambidextrous, but primarily right-handed male with PMH of FULL CODE @ home, overweight with BMI 28.2 (height 193.0 cm; weight 105.1 kg), cervicalgia due to "pinched nerve @ C3-C4", s/p C3-C4 laminectomy via anterior approach (11/01/2016, [place], [place]), insomnia disorder on trazodone 100mg PO qhs, GERD on pantoprazole 40mg PO qam, HTN on lisinopril 10mg PO daily, non-insulin dependent DM2 with last recorded HbA1c 6.5% (as per patient's report), on metformin 1000mg PO bid and empagliflozin 10mg PO daily, diabetic toe ulcers/osteomyelitis, all resolved s/p left 2nd toe amputation (2018, [place], [place]), followed by right 1st, 2nd, and 3rd DIP amputations (2021, [place], [place]), after patient's dog licked the patient's right 1st, 2nd, and 3rd toes and transmitted Pasteurella multocida/canis, 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, and CVD, s/p painless right CRAO (central retinal artery occlusi on, diagnosed on 08/23/2016, and self-attributed to patient's obstructive sleep apnea, not utilizing CPAP at the time (but now on nocturnal CPAP @ 5 cm H2O), leading to hypoxia, as per patient's report, as patient was visiting his mother in [place], [place], and on waking up in his mother's home to go to the bathroom, patient discovered that he no longer could see out of his right eye, prompting a 1 night observational stay @ [place], [place]), 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 with "my balance being off ever since then, to the point, that I fell last month (April 2025) for the first time ever, while walking my dog 2.6 miles, normally I don't walk 2.6 miles in a day, maybe one or two thousand feet a day with my dog, but anyway, I did a face plant and hit my right forehead in broad daylight, but there was no bleeding on my forehead, just an abrasion and no blackout," now on ASA 81mg PO daily, plavix 75mg PO daily and atorvastatin 20mg PO qpm, who reports: "I was talking to my two sisters at the [employer] having brunch with some other friends this afternoon (06/15/2025, 2:00pm) talking about the football game with [facility] and [place] and how they blew it at their own home stadium, and I flew in from [employer] [place], just to see them play and paid $320 a ticket, 2 tickets, up in row 75, and I was gonna fly back home on Monday (06/17/2025), when all of a sudden, I couldn't say the words that I wanted to say. I felt so embarrassed because this never happened to me before. This problem getting the words out lasted about 45 minutes, and as I came to [facility] ER in a car driven by my sisters, I could talk again. By the time I was in the ER, I was back to being myself." Patient denies antecedent/coincident fevers, chills, diaphoresis, cough, wheeze, sore throat, hemoptysis, shortness of breath, dyspnea on exertion, chest pains, palpitations, pleurisy, nausea, vomiting, diarrhea, abdominal pain, pelvic pain, hematemesis, hematochezia, melena, hematuria, dysuria, frequency, urgency, headaches, dizziness, lightheadedness, visual changes, hearing changes, receptive aphasia, weakness, falls, syncope, trauma, travel history, sick contacts, or food/drug ingestions novel or new. All other review of systems are reported as negative by the patient on admission date 06/15/2025. In [facility] ER bed #C5, patient was afebrile @ 36.1 degrees Celsius, HR 98, RR 17, O2 sat 94% on room air, and BP 130/71 (06/15/2025, 2:34pm). Exam was noted for the absence of facial droop, pronator drift, or dysarthria. Complete blindness in right eye (unchanged since 08/23/2016 painless right CRAO). NIH stroke scale 0. Labs in [facility] ER bed #C5 included: WBC 4.19, N48 L35 M12 E4 B1, Hb 10.3, MCV 93.9, MCHC 33.4, platelet 191 (06/15/2025, 2:47pm). INR 1.0 (06/15/2025, 2:47pm). Na 139, K 4.3, glucose 138, anion gap 15, CO2 19, BUN 19, creatinine 0.94, Ca 9.2, Mg 1.4, AST 24, ALT 18, ALK PHOS 81, total bili 0.5 (06/15/2025, 2:47pm). HbA1c (06/15/2025, 2:47pm). Troponin-I 4.1 pg/mL (06/15/2025, 2:47pm). TSH 2.057 uIU/mL (06/15/2025, 2:47pm). U/A (06/15/2025, 9:41pm). Additional testing in [facility] ER bed #C5 included: CT brain without IV contrast (06/15/2025, 2:40pm): 1. Cerebral atrophy. 2. No acute bleed, mass, or midline shift. CTA head/neck (06/15/2025, 2:40pm): 1. Greater than 90% stenosis of the right proximal cervical internal carotid artery without total occlusion. 2. Arteries of the head and neck otherwise patent. EKG (06/15/2025, 2:42pm): NSR @ 92, MI 146, QTC 420, no acute ST depressions/elevations, TWI, or q waves (by my review). MRI brain without IV contrast (06/15/2025, 5:40pm): 1. Suspect small subcortical acute infarct in the right frontal lobe near the vertex. 2. Minor chronic small vessel ischemic changes. Patient was subsequently admitted to the inpatient hospitalist service @ [facility] on 06/15/2025 with the following diagnoses: 1. Acute non-hemorrhagic, ischemic right frontal CVA, R/O thrombo-embolism from right proximal ICA with greater than 90% stenosis therein (as noted on 06/15/2025, 2:40pm CTA head/neck), R/O intra-cardiac thrombo-embolism. 2. Acute hypomagnesemia with admission Mg 1.4 g/dL (06/15/2025, 2:47pm). 3. Acute elevated anion gap 19, metabolic acidosis with CO2 19 mmol/L, and serum glucose 138 mg/dL (06/15/2025, 2:47pm), R/O lactic acidosis from home- scheduled metformin 1000mg PO bid. 4. Normocytic, normochromic anemia with admission Hb 10.3 g/dL, MCV 93.9, MCHC 33.4 (06/15/2025, 2:47pm). 5. Peripheral monocytosis increasing with admission M%11.9% (06/15/2025, 2:47pm) and discharge M% 14.2% (06/16/2025, 8:59am), of unclear etiology, but suspect acute viral syndrome. To address #1, patient was placed on telemetry, neuro checks q4h x 24 hours, underwent HbA1c (5.9%, 06/15/2024, 2:47pm), fasting lipid panel (total cholesterol 107, LDL 48, HDL 38, triglyceride 105, 06/16/2025, 8:59am), TTE (06/16/2025, 7:03am): 1. LVEF 55-60%. Mild concentric LVH. LV wall motion normal. 2. RV normal size and normal systolic function. 3. LA/RA sizes normal. No interatrial shunt. 4. No . No AR. 5. PV not well visualized. 6. No MS. Trace MR. Borderline MVP. 7. No TR. 8. Aortic root normal size. Normal IVC diameter and respiratory variation suggests normal CVP. 9. No pericardial effusion. (as per CARDS Dr. Denny Cervantes). Patient also underwent PT/OT/Speech & Swallow Service evaluations (06/16/2025, 7:00am), and was cleared by all 3 services for D/C back to home. Patient also underwent Vascular Surgery Service evaluation with Dr. Kael Muhammad (06/16/2025, 10:28am) regarding left carotid endarterectomy to address right proximal ICA with greater than 90% stenosis, and recommends that patient undergo left carotid endarterectomy within the next 1-2 weeks. Patient reports that he will confer with his medical provider(s) in his hometown of [place], [place], where he is scheduled to return to on Monday morning (06/17/2025) via airplane. In the interim, patient was continued on his home-scheduled ASA 81mg PO daily and plavix 75mg PO daily. Patient was also started on high intensity dose atorvastatin 80mg PO qpm, in lieu of his home-scheduled low intensity dose atorvastatin 20mg PO qpm. Patient reports that he has adequate supplies of atorvastatin 20mg tablets to make up the 80mg PO qpm dosing above, and hence, that he does not need a separate/new prescription for atorvastatin 80mg PO qpm on hospital discharge back to his home on 06/16/2025. Patient also underwent Neurology Service evaluation with Dr. Arian Tompkins (06/16/2025, 1:52pm), and who gave the following impression of "70 yo male with resolved word finding problem in setting of metabolic acidosis, hypomagnesium, incidental finding of small rt deep subcortical ischemic lesion. His word finding problem is likely due to metabolic disorder rather than from the stroke as it does not explain or localizes to the mri brain finding. Patient also gave the following recommendations: 1. DAPT for 21 days and monotherapy after that. 2. Vascular surgery recommendation noted 3. Not much else to offer from neurology as he is asymptomatic and I do not feel his small lesion in mri brain is the cause for his symptom. 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 4. Will sign off. To address #2, patient received magnesium sulfate 1g IV x 2 doses (06/15/2025, 4:07pm, 5:23pm) in [facility] ER bed #C5. Patient received magnesium sulfate 1g IV x 2 more doses (06/16/2025, 1:49am, 4:59am) in [facility] Tele bed #N386-1. Subsequently, acute hypomagnesemia RESOLVED with post-supplement Mg 2.0 mg/dL (06/16/2025, 8:59am). To address #3, patient underwent lactic acid #1 (1.1 mmol/L, 06/15/2025, 10:53pm) and repeat anion gap (7), CO2 (27), and serum glucose (110) levels in the 06/16/2025, 8:59am. Hence, patient had neither acute lactic acidosis or acute DKA as potential etiologies for his acute elevated anion gap metabolic acidosis, of unclear etiology. In the interim, patient was and continues to be held off his home-scheduled metformin 1000mg PO bid for at least the next 72 hours (e.g., 06/18/2025, 2:40pm is the earliest that patient may resume his home-scheduled metformin 1000mg PO bid) from the time of patient having received IV contrast (06/15/2025, 2:40pm CTA head/neck) in order to mitigate the potential for post-contrast nephropathy should patient have continued to receive uninterrupted his home-scheduled metformin 1000mg PO bid while in [facility]. To address #4, patient underwent repeat Hb level (e.g., Hb 9.8 g/dL, 06/16/2025, 8:59am) testing in the 06/16/2025, 4:44am. Patient reported no mucosal bleeding and remains hemodynamically stable. Patient did not require packed RBC transfusion(s) while in [facility] from admission date 06/15/2025 to discharge date 06/16/2025. Patient reports that he last underwent screening colonoscopy ~2 years ago in [place], and was told that he had no colon polyps or colon carcinoma, and that his next colonoscopy would be in 5-10 years. Patient subsequently reports that in the past 2 weeks, he noted dark/black stool at his home in [place], [place], and is tentatively scheduled to undergo outpatient EGD with his GI specialist in [place], in July 2025. To address #5, patient was observed as patient concedes to recent development of dry, paroxysmal coughing on 06/16/2025. I surmise that patient has an acute viral syndrome, given the subsequent decline in WBC from admission WBC 4.19, N48 L35 M12 E4 B1 (06/15/2025, 2:47pm) to discharge WBC 2.53, N47 L32 M14 E5 B1 (06/16/2025, 8:59am), which in turn, could have contributed to, or even caused his (2) acute hypomagnesemia with admission Mg 1.4 g/dL (06/15/2025, 2:47pm), and/or his (3) acute elevated anion gap 19, metabolic acidosis with CO2 19 mmol/L, and serum glucose 138 mg/dL (06/15/2025, 2:47pm). Discharge Exam Constitutional General: Comfortable, cooperative, coherent. Wide awake and alert. Not confused, lethargic, or obtunded. Patient speaks in complete, fluent, and articulate sentences without pause, interruption, cough, or wheeze. HEENT: Normocephalic, atraumatic. Extra-ocular muscles intact. Pupils equally round and reactive to light. No nystagmus, gaze paresis, anisocoria, miosis, mydriasis, hyphema, chemosis, scleral injection, conjunctivitis, or pterygium. No otorrhea or rhinorrhea. No pharyngeal discharge or exudate. Absence of facial droop, pronator drift, or dysarthria. Complete blindness in right eye (unchanged since 08/23/2016 painless right CRAO). NIH stroke scale 0. Neck: Supple, no stridor or bruit. Jugular venous pressure is estimated to be 3 cm above the sternal angle of [place], which is, by definition, 5 cm above the level of the right atrium. Hence, jugular venous pressure of 8 cm is not elevated on discharge date 06/16/2025. Lymphatics: No anterior/posterior cervical, infraclavicular, supraclavicular, axillary, epitrochlear, or inguinal adenopathy. Chest: Symmetric rise and fall with respirations. Non-tender to palpation. Lungs: Clear to auscultation and percussion. No audible expiratory wheeze, egophony, pectoriloquy, increase in tactile fremitus, or flatness/dullness to percussion at the bases. Heart: Regular rate and rhythm. S1 and S2 noted. No S3 or S4 summation gallop. No tripartite friction rub. Grade II/ early systolic murmur at left lower sternal border without radiation to the carotids, axilla, or back, and which remains invariant in regards to the respiratory cycle. Abdomen: Soft, non-tender, non-distended. No rebound, guarding, Alcala's sign, or organomegaly. Bowel sounds auscultated in all 4 quadrants. Extremities: No clubbing, cyanosis, or edema. 2+ pedal pulses bilaterally. Skin: No decubitus ulcer, exanthem, or enanthem. Urology: No aponte catheter. No purewick. No urethral discharge. Neurology: Alert and oriented in regards to person, place, time, and situation. DTR+. 5/5 motor strength in all 4 extremities, both proximally and distally. Psychiatry: No flat affect. No monotone voice. Smiles appropriately. Discharge Plan Discharge Items Patient Disposition: Home - Self-Care Reason For Visit: ACUTE RIGHT FRONTAL CVA Discharge Diagnosis: 1. Acute non-hemorrhagic, ischemic right frontal CVA, R/O thrombo-embolism from right proximal ICA with greater than 90% stenosis therein (as noted on 06/15/2025, 2:40pm CTA head/neck), R/O intra-cardiac thrombo-embolism. Expressive aphasia RESOLVED. 2. Acute hypomagnesemia with admission Mg 1.4 g/dL (06/15/2025, 2:47pm), RESOLVED with post-supplement Mg 2.0 mg/dL (06/16/2025, 8:59am). 3. Acute elevated anion gap 19, metabolic acidosis with CO2 19 mmol/L, and serum glucose 138 mg/dL (06/15/2025, 2:47pm), R/O lactic acidosis from home- scheduled metformin 1000mg PO bid, RESOLVED with discharge anion gap 7, CO2 27 mmol/L, and serum glucose 110 mg/dL (06/16/2025, 8:59am). 4. Normocytic, normochromic anemia with admission Hb 10.3 g/dL, MCV 93.9, MCHC 33.4 (06/15/2025, 2:47pm) and discharge Hb 9.8 g/dL, MCV 93.0, MCHC 33.7 (06/16/2025, 8:59am). 5. Peripheral monocytosis increasing with admission M%11.9% (06/15/2025, 2:47pm) and discharge M% 14.2% (06/16/2025, 8:59am), of unclear etiology, but suspect acute viral syndrome. Condition on Discharge: Fair Activity: Resume your previous activity Lifting: Gradually increase as tolerated Bathing: No limitations Sexual Activity: When tolerated Exercise/Sports: Gradually increase as tolerated Driving/Machine Use: No limitations Weightbearing: Full weightbearing Non-emergency contact: Primary Care Provider Call non-emergency contact if: you have any medication questions Follow-up/Referrals: Rod Jackman MD [Primary Care Provider] - (Please call your primary care provider to schedule a hospital follow-up within 7-10 days) Diet: Carb Consistent or DM2 and Heart Healthy Addtl Attending Provider Instructions: See your PCP @ [place], [place], within 5-7 days of hospital discharge. Pending Studies at Discharge: No Stand-Alone Forms: [employer], Smoking Cessation Medications and DC Order Prescriptions: New atorvastatin 40 mg Tablet 80 mg PO PM Qty: 30 0RF Continued clopidogrel 75 mg Tablet 75 mg PO PM aspirin 81 mg Tablet,Delayed Release (Dr/Ec) 81 mg PO PM trazodone 100 mg Tablet 100 mg PO HS pantoprazole [Protonix] 40 mg Tablet,Delayed Release (Dr/Ec) 40 mg PO QAM Patient Comments: per pt, he isnt sure of his dose lisinopril 10 mg Tablet 0 mg PO QAM Patient Comments: per pt, he isnt sure of his dose Jardiance 10 mg Tablet 0 mg PO QAM Patient Comments: per pt, he isnt sure of his dose cyanocobalamin (vitamin B-12) 0 mg PO QAM Patient Comments: per pt, he isnt sure of his dose iron 0 mg PO BID Patient Comments: per pt, he isnt sure of his dose Held metformin 1,000 mg Tablet 1,000 mg PO BID Hold Instructions: Resume on 06/18/25. Hold OFF home-scheduled metformin 1000mg PO bid until 06/18/2025, 2:40pm, to allow for at least 72 hours to pass from the time you last received IV contrast during 06/15/2025, 2:40pm CTA head/neck, in order to avoid the potential risk for developing post-IV contrast nephropathy should you continue uninterrupted your home-scheduled metformin 1000mg PO bid. Discontinued atorvastatin 0 mg PO PM Patient Comments: per pt, he isnt sure of his dose Discharge Orders: Discharge Order (Routine); Ordered 06/16/25 Ordered By: Leo Leslie Admission Data Admit Date/Time: 06/15/25 21:23 Attending Provider: Leo Leslie Admit Provider: Leo Leslie Primary Care Provider: Rod Jackman Other Providers: Leo Leslie; Robb Muhammad; Arian Tompkins Other Interventions: Discharge Summary Assessment (RN) Last Done: 06/16/25 15:12 Hospital Stay Data Consultations 06/15/25 17:02 ED Decision to Admit Stat 06/15/25 17:39 Consult Vascular Surgery Routine 06/16/25 10:48 Burn CD for patient Stat 06/16/25 12:18 Consult Neurology Routine Diagnostic Imagining Performed 06/15/25 14:40 CT angio head w con Stat CT angio neck with con Stat CT head/brain wo con Stat 06/15/25 17:40 MRI Brain [MR brain wo con] Stat Pending Results Patient Have Any Pending Studies at Discharge: No Discharge Instructions Given to Patient (Per Discharging Provider) See your PCP @ [place], [place], within 5-7 days of hospital discharge. Total Time Total Time Spent Total Time Spent (In Minutes): 35 minutes. Of this time period, 19 minutes were spent in coordinating patient's discharge. Coding Level of Care Code 11830 INP/OBS DISCH >30 MIN
== END 2025-06-16 15:47 | disposition home or self-care (01) | DRG 65 ==
LOC: EDBD → 3N 14:29 → ED 14:29 → 3N 20:45 → 2W 23:17